=== PATIENT | male | born 1990 | race Caucasian/White ===

== ENCOUNTER 2018-09-25 11:57 | Day surgery (SDC) | payer OTHER ==
--- NOTE | 2018-09-25 12:39 | EDPHY ---
H & P Stated Complaint: Right hand injury Time Seen by Provider: 09/25/18 12:02 HPI/ROS: CHIEF COMPLAINT: Right palmar hand injury HISTORY OF PRESENT ILLNESS: 28-year-old male, right-hand dominant, arrives via private vehicle complaining of laceration to the right palmar aspect of hand when he fell while holding a glass bottle in his hand. He is unable to flex at the 3rd MCP. Denies: Proximal pain or injury, head injury REVIEW OF SYSTEMS: 10 systems reviewed and negative with the exception of the elements mentioned in the history of present illness PAST MEDICAL & SURGICAL HISTORY: No pertinent medical or surgical history SOCIAL HISTORY:Positive for marijuana use PHYSICAL EXAM (Prior to examination, patient consented to physical exam, hands were washed and my usual and customary physical exam procedures followed) 1) GENERAL: Well-developed, well-nourished, alert and oriented. Appears to be in no acute distress. 2) HEAD: Normocephalic, atraumatic 3) HEENT: Pupils equal, round, reactive to light bilaterally. Sclera anicteric. 4) NECK: Full range of motion, no meningeal signs. 5) LUNGS: Clear auscultation bilaterally, no wheezes, no rhonchi, no retractions. 6) HEART: Regular rate and rhythm, no murmur, no heave, no gallop. 7) ABDOMEN: No guarding, no rebound, no focal tenderness, negative McBurney's, negative Boykin's, negative Rovsing's, negative peritoneal sign, 8) MUSCULOSKELETAL: Right upper extremity: There is a laceration overlying the 3rd and 4th metacarpal palmar aspect, not through and through. No visible or palpable foreign body. No underlying osseous discomfort. He is unable to flex at the 3rd MCP. FDP FDS at the 2nd 3rd 4th and 5th digit are intact. Moving all extremities, no focal areas of tenderness, no obvious trauma. No peripheral edema or discoloration. 9) BACK: No obvious trauma, no visual or palpable abnormality. 10) SKIN: No rash, no petechiae. 11) Psychiatric: Patient is oriented X 3, there is no agitation. DIFFERENTIAL DIAGNOSIS: In no particular order including but not limited to retained foreign body, laceration, flexor tendon laceration - Personal History Current Tetanus/Diphtheria Vaccine: Yes - Medical/Surgical History Hx Asthma: No Hx Chronic Respiratory Disease: No Hx Diabetes: No Hx Cardiac Disease: No Hx Renal Disease: No Hx Cirrhosis: No Hx Alcoholism: No Other PMH: Denies - Social History Smoking Status: Never smoked Constitutional: Initial Vital Signs Temperature (C) 37.0 C 09/25/18 11:57 Heart Rate 66 09/25/18 11:57 Respiratory Rate 18 09/25/18 11:57 Blood Pressure 131/78 H 09/25/18 11:57 O2 Sat (%) 96 09/25/18 11:57 O2 Delivery Mode Room Air Allergies/Adverse Reactions: No Known Allergies Allergy (Unverified 09/25/18 12:00) Home Medications: Medication Instructions Recorded Cephalexin [Keflex] 500 mg PO TID 5 Days cap 09/25/18 Medical Decision Making - Diagnostics Imaging Results: Images reviewed by myself ED Course/Re-evaluation: 1:00 p.m.: Phone consultation with Dr. Natividad Sorto, on-call hand surgery, discussed the physical exam findings. He requests the wound be irrigated, gently closed, splinted and follow up in the office on Thursday as today is Thursday. He will plan on taking the patient for operative repair later in the week. 1:50 p.m.: UPDATE: Dr. Sorto has spoken with the patient and because of the patient's current housing situation, notably living in a van, he has recommended the patient have operative repair today at approximately 1500 hr and then will discharge after that. - Data Points Medications Given: Discontinued Medications Bupivacaine HCl (Sensorcaine 0.5% Vial) Confirm Administered Dose 30 ml .ROUTE .STK-MED ONE Stop: 09/25/18 15:08 Last Admin: 09/25/18 16:03 Dose: Not Given Cephalexin HCl (Keflex) 500 mg PO EDNOW ONE PRN Reason: Protocol Stop: 09/25/18 13:09 Last Admin: 09/25/18 13:19 Dose: Not Given Lidocaine HCl (Lidocaine Hcl 1%) Confirm Administered Dose 300 mg .ROUTE .STK- MED ONE Stop: 09/25/18 15:08 Last Admin: 09/25/18 16:05 Dose: Not Given Lidocaine/Epinephrine (Xylocaine 1%-Epi 1:200,000) Confirm Administered Dose 30 ml .ROUTE .STK-MED ONE Stop: 09/25/18 15:13 Last Admin: 09/25/18 15:15 Dose: 30 ml Lidocaine/Epinephrine (Lidocaine 1%-Epi 1:100,000) Confirm Administered Dose 40 ml .ROUTE .STK-MED ONE Stop: 09/25/18 15:46 Last Admin: 09/25/18 16:07 Dose: 15 ml Sodium Bicarbonate (Sodium Bicarbonate) Confirm Administered Dose 50 meq .ROUTE .STK-MED ONE Stop: 09/25/18 15:08 Last Admin: 09/25/18 15:15 Dose: 3 meq Departure - Departure Disposition: To OP Cath/Surgery Clinical Impression: Hand laceration involving tendon Qualifiers: Encounter type: initial encounter Laterality: right Qualified Code(s): S61.411A - Laceration without foreign body of right hand, initial encounter Condition: Good
[2018-09-25] MEDS ORDERED: CEPHALEXIN 500 MG CAP PO ONE (13:08)
--- NOTE | 2018-09-25 15:02 | ASMTCMCOM ---
CM Note CM Note Notes: This CM met with patient regarding follow up, establishment of PCP. Registration met with patient and provided him with information regarding self pay options and application for [place] Medicaid. 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 Patient has been living in [place] for five years and is originally from [place]. I have encouraged patient to visit the [employer] website to look into his options, explaining that if his income is too high for Medicaid he may still qualify for reduced cost health insurance. Patient has also been provided contatct information for [facility] and I have encouraged him to follow up with establishing a PCP. Patient verbalizes understanding and has necessary paperwork to follow up Date Signed: 09/25/2018 03:01 PM Electronically Signed By:Becca Norman RN
[2018-09-25] MEDS ORDERED: LIDOCAINE 1% 300 MG/30 ML SDV ONE (15:07)
[2018-09-25] MEDS ORDERED: BUPIVACAINE 0.5% 30 ML SDV ONE (15:07)
[2018-09-25] MEDS ORDERED: NA BICARBONATE 50 MEQ/50 ML VIAL ONE (15:07)
[2018-09-25] MEDS ORDERED: LIDO/EPI 1% **for epidural** 30 ML SDV ONE (15:12)
--- NOTE | 2018-09-25 15:30 | PDHPUP ---
History & Physical Update H&P update statement: This history and physical update is based on an assessment of the patient which was completed after admission or registration (within 24 hours), but prior to the surgery/procedure. H&P update: H&P reviewed & patient examined, no change in patient's condition since H&P completed
--- NOTE | 2018-09-25 15:32 | PDGENHP ---
History and Physical History and Physical: cc R hand lac hpi cut R hand on glass. Seen in ED PMH: none Exam Gen alert and oriented R hand -RLF FDS, FDP not intact. 3cm palmar lac A/P: RLF flexor tendon lac -plan repair
[2018-09-25] MEDS ORDERED: LIDO/EPI 1% **Not for Epidural 20 ML MDV ONE (15:45)
[2018-09-25 17:51] VITALS: BP 102/84
--- NOTE | 2018-09-25 19:48 | GCON ---
[f rep st] CONSULTATION REFERRING PHYSICIAN: Antony Nguyễn MD CHIEF COMPLAINT: Right palm laceration and tendon injury. HISTORY OF PRESENT ILLNESS: This patient is a 28-year-old male who sustained an injury to his right hand while long boarding. He was long boarding and fell , holding a glass jar, which then lacerated in his hand. He came to the ED because he was unable to flex his middle finger at all. He was seen and evaluated by the ED staff. I was called as the patient could not flex the finger and was diagnosed with flexor tendon laceration. PAST MEDICAL AND SURGICAL HISTORY: Denies any pertinent past medical and surgical history. SOCIAL HISTORY: He uses marijuana. REVIEW OF SYSTEMS: 10-point review of systems is negative, except as noted above. OBJECTIVE PHYSICAL EXAMINATION: GENERAL: He was alert and oriented x3, in no apparent distress. MUSCULOSKELETAL: In the right hand, there is a 2 cm laceration oblique in the middle of the palm. He has no active flexion of the PIP or DIP joints of the right long finger. I am unable to assess sensation at the finger tip at this time because he was blocked by the ED staff; however, I was informed by the ED staff that he indeed had intact sensation prior to the block. The patient also informs that his sensation was intact prior. ASSESSMENT AND PLAN: Right long finger zone 3 flexor digitorum superficialis and flexor digitorum profundus lacerations - repair is indicated. I discussed over the phone with the patient the options. He informed me that he lives in a van. He currently does not have health insurance. It is my concern that he will be lost to followup due to his lack of medical insurance and his housing situation. I felt that it was prudent to repair his flexor tendon today and get him set up with therapy while he is in [place]. He normally lives in [place]. It was my concern that if he leaves the hospital, without insurance, he would have a hard time getting set up with a surgeon, even myself, due to the medical insurance. I had discussed with the ED staff to have him speak to a family welfare social work professor while I was here to get the process started of applying for emergency Medicaid. Nevertheless, I felt that repair today would benefit the patient's overall outcome. /[id number]/MODL MTDD
--- NOTE | 2018-09-25 20:13 | GOP ---
[f rep st] OPERATIVE REPORT DATE OF OPERATION: SURGEON: Juan José Sorto MD ANESTHESIA: Local 1% lidocaine with epinephrine, 30 cc performed by me in the preoperative area. PREOPERATIVE DIAGNOSIS: Right long finger flexor digitorum superficialis and flexor digitorum profun dus lacerations in zone 3. POSTOPERATIVE DIAGNOSIS: Right long finger flexor digitorum superficialis and flexor digitorum profu ndus lacerations in zone 3. PROCEDURE PERFORMED: 1. Right long finger flexor digitorum profundus repair, primary, in zone 3. 2. Right long finger flexor digitorum superficialis repair in zone 3. FINDINGS: ESTIMATED BLOOD LOSS: Less than 5 cc. INDICATIONS: The patient is a 28-year-old male who sustained this injury earlier today. He was long boarding and fell while holding a glass in his right hand. When he fell, the glass lacerated the pal m. He noticed that his finger was held out extended and he was unable to flex it. He was then seen in the ED, seen and evaluated by the ED staff. Flexor tendon laceration was identified and I was call ed for consultation. I discussed with him the treatment options. The patient lives in a van. He cu rrently does not have health insurance. I felt that for coordination of care it would be best if we perform it today, so the patient is not lost to followup, as a flexor tendon laceration there is some time sensitivity to performing the repair. I discussed risks and benefits with him. Risks include pain, bleeding, infection, damage to surrounding structures, tendon adhesions, late tendon rupture, n eed for further surgery including tenolysis, stiffness, weakness. He understood these risks and he w ished to proceed. DESCRIPTION OF PROCEDURE: The patient was seen in preoperative holding area. He was given the oppor tunity to ask any questions. All his questions were answered. Consent was signed. Surgical site wa s marked. I performed a block in the preop area using tumescent type anesthesia with 1% lidocaine wi th epinephrine. This was done in the palm in the long finger. He was then transferred to operative suite. Care was taken to pad all bony prominences on the gurney. Time-out was called including surg ical and anesthesia teams confirming surgical site and procedure performed. The right upper extremit y was prepped and draped in usual sterile fashion. He had a 2 cm oblique laceration in the middle of his palm in line with his long finger. I extended the laceration proximally and distally in a Jaki r type fashion. I exposed the neurovascular bundles, which were intact. I exposed the flexor tendon sheath. He had a laceration essentially just proximal to the A1 sirena. Both tendons were cleanly lacerated. Flexing the finger, I was able to find the distal stumps. I then began dissecting toward the carpal tunnel to identify the proximal stumps. I identified one of his lumbricals which appeare d to be tethered to the tendon. I identified his arch, which was intact. Then I was able to find th e proximal tendon stumps. I then began the repair by 1st performing the profundus repair. This was before the chiasm, proximal to it I held the superficialis out of the way. I performed a back wall 1 st type repair. I held the proximal stump in place with a hypodermic needle. Then, I placed 1st amaya bs of the Fransisca stitch with a 4-0 Supramid on either side to bring the tendon together. I then repair ed the back wall with an epitendinous 6-0 Prolene stitch. This held the tendon together nicely and carli ashby completed the Fransisca stitch 6-strand repair. I tied each strand independently and then completed t he epitendinous repair with locking over the top of the tendon, and finished this on the other and ti ed the knot. I then turned my attention to the superficialis repair. The superficialis was repaired in the same fashion. I, however, used a 4-strand locking cruciate repair with a 4-0 FiberWire rene chow, also performing a back wall 1st epitendinous repair. After this was done, I checked the glide an d it was gliding smoothly. It was not snacking any pulleys. Of note, I did divide the A1 sirena in its entirety for the repair. I then had the patient make a full fist and he made a nice full fist ti ghtly, and then extend those fingers fully. There was no gapping of the repair. I was very happy wi th the strength of my repair. I then irrigated copiously with sterile saline. Of note, prior to exp loration and initiating our repair, we irrigated copiously with a few L of sterile saline. After the 2nd irrigation was done, I then closed the skin with interrupted and running 4-0 nylon. A sterile d ressing was applied. A dorsal block splint was applied. He tolerated the procedure well, was taken to PACU in stable condition. POSTOPERATIVE CONDITION: Stable. POSTOPERATIVE PLAN: I will try to set up hand therapy for the patient on Thursday or Thursday. He was instructed to try to set up Medicaid as soon as possible so that he can participate in therapy and co brian the cost of the surgery. I discussed with him the importance of beginning therapy as soon as pos sible. 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 Coordination of his care will be more difficult as he lives in a van. He tolerated th e procedure well, and was then taken to PACU in stable condition. He will follow with me in 10-14 days. /[id number]/MODL
== END 2018-09-25 18:11 | disposition home or self-care (01) ==
LOC: FSGY 14:15
PROVIDERS: ATTEND Orthopaedic Surgery Hand Surgery
DX: S66.821A Laceration of other specified muscles, fascia and tendons at wrist and hand level, right hand, initial encounter (principal); S61.411A Laceration without foreign body of right hand, initial encounter; W25.XXXA Contact with sharp glass, initial encounter; V00.131A Fall from skateboard, initial encounter; Y93.51 Activity, roller skating (inline) and skateboarding